=== PATIENT | female | born 1960 | race Two or more races ===

== ENCOUNTER 2017-07-02 11:08 | Outpatient (CLI) | payer OTHER | END 2017-07-02 17:00 | disposition home or self-care (01) | LOC: SONOGRAMA 11:08 | DX: R10.2 Pelvic and perineal pain (principal); D13.5 Benign neoplasm of extrahepatic bile ducts ==

== ENCOUNTER 2017-11-08 11:26 | Outpatient (CLI) | payer OTHER ==
[~2017-11-08 11:26] MED LIST: CLARINEX PO; LIPITOR20 MG PO; TAGAMET300 MG PO
== END 2017-11-08 11:28 | disposition home or self-care (01) ==
LOC: RAD 501 11:26
DX: Z01.810 Encounter for preprocedural cardiovascular examination (principal); E78.9 Disorder of lipoprotein metabolism, unspecified; D25.1 Intramural leiomyoma of uterus; D25.2 Subserosal leiomyoma of uterus

== ENCOUNTER 2017-11-14 06:22 | Day surgery (SDC) | payer OTHER | END 2017-11-14 11:20 | disposition home or self-care (01) | LOC: CIR.AMB 06:22 | DX: N84.0 Polyp of corpus uteri (principal) ==

== ENCOUNTER → 2019-03-12 | Outpatient (CLI) | payer OTHER | END | disposition home or self-care (01) | LOC: MAMO-SONO 03-06 07:45 | DX: Z12.31 Encounter for screening mammogram for malignant neoplasm of breast (principal); N64.4 Mastodynia; N60.11 Diffuse cystic mastopathy of right breast; N63.10 Unspecified lump in the right breast, unspecified quadrant; N63.20 Unspecified lump in the left breast, unspecified quadrant ==

== ENCOUNTER 2020-05-12 14:18 | Outpatient (CLI) | payer OTHER | END 2020-05-12 14:26 | disposition home or self-care (01) | LOC: NUCLEAR 14:18 | PROVIDERS: ATTEND Internal Medicine | DX: M81.0 Age-related osteoporosis without current pathological fracture (principal); E78.89 Other lipoprotein metabolism disorders; D25.1 Intramural leiomyoma of uterus; D25.2 Subserosal leiomyoma of uterus; K30 Functional dyspepsia; J45.998 Other asthma; J45.20 Mild intermittent asthma, uncomplicated ==

== ENCOUNTER → 2020-05-12 | Outpatient (CLI) | payer OTHER | END | disposition home or self-care (01) | LOC: MAMO-SONO 06:59 | PROVIDERS: ATTEND Internal Medicine | DX: R92.0 Mammographic microcalcification found on diagnostic imaging of breast (principal); N64.59 Other signs and symptoms in breast; Z12.31 Encounter for screening mammogram for malignant neoplasm of breast; E78.89 Other lipoprotein metabolism disorders; D25.1 Intramural leiomyoma of uterus; D25.2 Subserosal leiomyoma of uterus; K30 Functional dyspepsia; J45.998 Other asthma; Z20.828 Contact with and (suspected) exposure to other viral communicable diseases; Z03.818 Encounter for observation for suspected exposure to other biological agents ruled out ==

== ENCOUNTER 2020-07-12 16:06 | Outpatient (CLI) | payer OTHER | END 2020-07-12 16:09 | disposition home or self-care (01) | LOC: PPH VACUNA 16:06 | DX: Z23 Encounter for immunization (principal) ==

== ENCOUNTER → 2020-08-02 09:57 | Outpatient (CLI) | payer OTHER | END | disposition home or self-care (01) | LOC: PPH VACUNA 09:57 | DX: Z23 Encounter for immunization (principal) ==

== ENCOUNTER 2020-10-14 09:00 | Outpatient (CLI) | payer OTHER | END 2020-10-14 09:08 | disposition home or self-care (01) | LOC: NUCLEAR 09:00 | PROVIDERS: ATTEND Internal Medicine | DX: I73.9 Peripheral vascular disease, unspecified (principal); J45.998 Other asthma; K30 Functional dyspepsia; I87.2 Venous insufficiency (chronic) (peripheral); N92.4 Excessive bleeding in the premenopausal period; E78.9 Disorder of lipoprotein metabolism, unspecified ==

== ENCOUNTER 2020-10-15 08:46 | Outpatient (CLI) | payer OTHER | END 2020-10-15 08:47 | disposition home or self-care (01) | LOC: NUCLEAR 08:46 | PROVIDERS: ATTEND Internal Medicine | DX: I87.2 Venous insufficiency (chronic) (peripheral) (principal) ==

== ENCOUNTER 2021-02-21 15:02 | Outpatient (CLI) | payer OTHER | END 2021-02-21 15:06 | disposition home or self-care (01) | LOC: PPH VACUNA 15:02 | PROVIDERS: ATTEND Emergency Medicine Pediatric Emergency Medicine | DX: Z23 Encounter for immunization (principal) ==

== ENCOUNTER 2021-09-02 06:19 | Outpatient (CLI) | payer OTHER | END 2021-09-05 14:46 | disposition home or self-care (01) | LOC: MRI 06:19 | PROVIDERS: ATTEND Family Medicine | DX: Z12.31 Encounter for screening mammogram for malignant neoplasm of breast (principal); M54.16 Radiculopathy, lumbar region; M54.17 Radiculopathy, lumbosacral region; N60.11 Diffuse cystic mastopathy of right breast; M54.50 Low back pain, unspecified | CPT/HCPCS: 72148 ==

== ENCOUNTER 2021-09-02 08:00 | Outpatient (CLI) | payer OTHER | END 2021-09-02 08:30 | disposition home or self-care (01) | LOC: PPH VACUNA 08:00 | PROVIDERS: ATTEND Emergency Medicine Pediatric Emergency Medicine | DX: Z23 Encounter for immunization (principal); Z71.85 Encounter for immunization safety counseling ==

== ENCOUNTER 2022-02-03 08:00 | Outpatient (CLI) | payer OTHER | END 2022-02-03 08:10 | disposition home or self-care (01) | LOC: PPH VACUNA 08:00 | PROVIDERS: ATTEND Emergency Medicine Pediatric Emergency Medicine | DX: Z23 Encounter for immunization (principal) ==

== ENCOUNTER 2022-02-06 13:24 | Emergency (ER) | payer OTHER ==
[~2022-02-06] VITALS: Ht 154.9 cm; Wt 54.4 kg
== END 2022-02-06 15:14 | disposition home or self-care (01) ==
LOC: ER 13:24
DX: J45.909 Unspecified asthma, uncomplicated (principal); Z86.16 Personal history of COVID-19; Z88.0 Allergy status to penicillin; Z20.822 Contact with and (suspected) exposure to COVID-19

== ENCOUNTER 2023-01-18 06:19 | Outpatient (CLI) | payer OTHER | END 2023-01-18 07:00 | disposition home or self-care (01) | LOC: MAMO-SONO 06:19 | PROVIDERS: ATTEND Obstetrics & Gynecology Maternal & Fetal Medicine | DX: Z12.31 Encounter for screening mammogram for malignant neoplasm of breast (principal); N60.11 Diffuse cystic mastopathy of right breast ==

== ENCOUNTER → 2023-02-09 | Outpatient (CLI) | payer OTHER | END | disposition home or self-care (01) | LOC: RAD 06:30 | PROVIDERS: ATTEND Internal Medicine | DX: M25.551 Pain in right hip (principal); M54.59 Other low back pain; K30 Functional dyspepsia; E78.9 Disorder of lipoprotein metabolism, unspecified; J45.998 Other asthma; J45.20 Mild intermittent asthma, uncomplicated; N92.4 Excessive bleeding in the premenopausal period; I87.2 Venous insufficiency (chronic) (peripheral); E55.9 Vitamin D deficiency, unspecified ==

== ENCOUNTER 2023-02-14 06:21 | Outpatient (CLI) | payer OTHER | END 2023-02-14 07:00 | disposition home or self-care (01) | LOC: SONOGRAMA 06:21 | PROVIDERS: ATTEND Family Medicine | DX: R10.84 Generalized abdominal pain (principal); M54.59 Other low back pain ==

== ENCOUNTER 2023-04-09 12:40 | Outpatient (CLI) | payer OTHER | END 2023-04-09 12:43 | disposition home or self-care (01) | LOC: NUCLEAR 12:40 | PROVIDERS: ATTEND Obstetrics & Gynecology Maternal & Fetal Medicine | DX: M81.0 Age-related osteoporosis without current pathological fracture (principal) ==

== ENCOUNTER 2023-10-31 08:15 | Outpatient (CLI) | payer OTHER | END 2023-10-31 09:00 | disposition home or self-care (01) | LOC: MRI 08:15 | DX: M54.50 Low back pain, unspecified (principal); M25.551 Pain in right hip; E55.9 Vitamin D deficiency, unspecified; I87.2 Venous insufficiency (chronic) (peripheral); N92.4 Excessive bleeding in the premenopausal period; J45.20 Mild intermittent asthma, uncomplicated; J45.998 Other asthma; K30 Functional dyspepsia; E78.9 Disorder of lipoprotein metabolism, unspecified; M54.59 Other low back pain | CPT/HCPCS: 72148 ==

== ENCOUNTER 2024-05-15 06:21 | Outpatient (CLI) | payer OTHER | END 2024-05-15 07:00 | disposition home or self-care (01) | LOC: MAMO-SONO 06:21 | PROVIDERS: ATTEND Obstetrics & Gynecology Maternal & Fetal Medicine | DX: N63 Unspecified lump in breast (principal); Z12.31 Encounter for screening mammogram for malignant neoplasm of breast; N64.4 Mastodynia; N60.11 Diffuse cystic mastopathy of right breast ==

== ENCOUNTER 2024-08-01 07:00 | Outpatient (CLI) | payer OTHER | END 2024-08-01 07:10 | disposition home or self-care (01) | LOC: SONOGRAMA 07:00 | PROVIDERS: ATTEND Internal Medicine | DX: N20.0 Calculus of kidney (principal); N92.4 Excessive bleeding in the premenopausal period; K30 Functional dyspepsia; E78.9 Disorder of lipoprotein metabolism, unspecified; E55.9 Vitamin D deficiency, unspecified ==

== ENCOUNTER → 2025-03-20 | Outpatient (CLI) | payer OTHER | END | disposition home or self-care (01) | LOC: SONOGRAMA 07:07 | PROVIDERS: ATTEND Internal Medicine Gastroenterology | DX: R10.13 Epigastric pain (principal) ==